=== PATIENT | female | born 1980 | race Caucasian/White ===

== ENCOUNTER 2016-07-25 21:55 | Emergency (ER) | payer OTHER ==
[2016-07-26] MEDS ORDERED: LIDOCAINE 1% INJ-PF (10 MG/ML) 30 ML SDV INJ ONE (00:03)
[2016-07-26] MEDS ORDERED: DIPH/PERTUSS(ACELL)/TETANUS VAC/PF 0.5 ML SYR (>=10YO) IM ONE (00:05)
--- NOTE | 2016-07-26 00:05 | ER Document Report ---
ED Wound - General Time seen by provider: 00:04 TRAVEL OUTSIDE OF THE [place] IN LAST 30 DAYS: No - General Chief Complaint: Laceration Stated Complaint: LACERATION TO LEFT HAND Notes: Patient is a 35-year-old female that comes emergency department for chief complaint of a laceration between her first and second digits on the left hand. Patient states she was opening a can of possible when she accidentally cut herself with the lid of the can. She is not up-to-date on her tetanus within 5 years, had it 5 years ago. Patient denies any other symptoms tonight. Patient denies history of diabetes. (PETRONA NASCIMENTO) - Related Data Allergies/Adverse Reactions: No Known Allergies Allergy (Unverified 07/25/16 22:06) Home Medications: Current Home Medications No Home Medications 07/25/16 [History] Past Medical History - General Information source: Patient - Social History Smoking Status: Never Smoker Frequency of alcohol use: None Drug Abuse: None Lives with: Family Family History: Reviewed & Not Pertinent Patient has suicidal ideation: No Patient has homicidal ideation: No - Medical History Medical History: Negative Renal/ Medical History: Denies: Hx Peritoneal Dialysis Surgical Hx: Negative - Immunizations Immunizations up to date: No Hx Diphtheria, Pertussis, Tetanus Vaccination: Yes Review of Systems - Review of Systems Constitutional: No symptoms reported EENT: No symptoms reported Cardiovascular: No symptoms reported Respiratory: No symptoms reported Gastrointestinal: No symptoms reported Genitourinary: No symptoms reported Female Genitourinary: No symptoms reported Musculoskeletal: See HPI Skin: See HPI Hematologic/Lymphatic: No symptoms reported Neurological/Psychological: No symptoms reported Physical Exam - Vital signs Interpretation: Normal - General General appearance: Appears well, Alert - HEENT Head: Normocephalic, Atraumatic Eyes: Normal Pupils: PERRL - Respiratory Respiratory status: No respiratory distress Chest status: Nontender Breath sounds: Normal Chest palpation: Normal - Cardiovascular Rhythm: Regular Heart sounds: Normal auscultation Murmur: No - Abdominal Inspection: Normal Distension: No distension Bowel sounds: Normal Tenderness: Nontender Organomegaly: No organomegaly - Back Back: Normal, Nontender - Extremities General upper extremity: Other - 1.5 cm laceration between the first and second digits of the left hand, partial-thickness, not deep enough to hit tenon, significant vessel, nerve. Normal neurovascular exam, normal tendon exam, normal hand exam otherwise. General lower extremity: Normal inspection, Nontender, Normal color, Normal ROM , Normal temperature, Normal weight bearing. No: Rosa's sign - Neurological Neuro grossly intact: Yes Cognition: Normal Orientation: AAOx4 [place] Coma Scale Eye Opening: Spontaneous [place] Coma Scale Verbal: Oriented [place] Coma Scale Motor: Obeys Commands [place] Coma Scale Total: 15 Speech: Normal Motor strength normal: LUE, RUE, LLE, RLE Sensory: Normal - Psychological Associated symptoms: Normal affect, Normal mood - Skin Skin Temperature: Warm Skin Moisture: Dry Skin Color: Normal Course - Re-evaluation Re-evalutation: Wound cleaned thoroughly, closed, discussed care and return precautions. Tetanus updated. (PETRONA NASCIMENTO) - Vital Signs Vital signs: Temp Pulse Resp BP Pulse Ox 97.9 F 86 16 115/78 97 07/26/16 01:14 07/26/16 01:14 07/26/16 01:14 07/26/16 01:07/26/16 01:14 Procedures - Laceration/Wound Repair left dorsal hand Wound length (cm): 1.5 Wound's Depth, Shape: Linear Laceration pre-procedure: Sterile PPE donned, Other - Surgical cleanser Anesthetic type: 1% Lidocaine Volume Anesthetic (mLs): 3 Wound explored: Clean, No foreign body removed Irrigated w/ Saline (mLs): 60 Wound Repaired With: Sutures Suture Size/Type: 4:0, Nylon Number of Sutures: 3 Layer Closure?: No Post-procedure wound care: Sterile dressing applied Post-procedure NV exam normal: Yes Complications: No Discharge - Discharge Clinical Impression: Hand laceration Qualifiers: Encounter type: initial encounter Foreign body presence: without foreign body Laterality: left Qualified Code(s): S61.412A - Laceration without foreign body of left hand, initial encounter Condition: Stable Disposition: HOME, SELF-CARE Instructions: Tetanus Immunization Given (OM) Additional Instructions: The sutures need to come out in 5-7 days. Keep clean, clean gently with soap and water, apply thin film of antibiotic the area, avoid soaking. Return immediately if you develop any concerning symptoms including signs of infection such as redness, swelling, discolored drainage, fever, or any other concerning symptoms.
[2016-07-26 01:19] VITALS: BP 115/78
== END 2016-07-26 01:22 | disposition home or self-care (01) ==
LOC: ER 21:55
PROC: 0HQGXZZ Repair Left Hand Skin, External Approach (ICD-10-PCS; principal; 2016-07-25)
DX: S61.412A Laceration without foreign body of left hand, initial encounter (principal); W45.8XXA Other foreign body or object entering through skin, initial encounter
CPT/HCPCS: 90471; 90715; 99282